=== PATIENT | male | born 1980 | race Two or more races ===

== ENCOUNTER 2024-03-20 11:06 | Emergency (ER) | payer MEDICAID, SELFPAY ==
[2024-03-20 11:07] VITALS: BMI 27.2
[2024-03-20 11:19] VITALS: BP 148/97; PULSE 82; RESP 16; TEMP 36.9; O2SAT 98; BMI 26.8
--- NOTE | 2024-03-20 12:20 | EDNOTE_ITS ---
ED Ear RME/HPI General Chief complaint: Ear Stated complaint: INCREASED BISHOP PAIUTE R EAR X1 MONTH Time Seen by Provider: 03/20/24 11:24 Source: patient Arrival date/time: 03/20/24 11:06 Is a 43-year-old male who presents to the emergency department with complaints of right ear pain and hard of hearing for 1 month. He was evaluated and treated by his PCP approximately 4 weeks ago with otic drops. Patient states he had mild improvement however his hearing muffled and pain has returned. Related Data Previous Rx's ?Medication ?Instructions ?Recorded amoxicillin 875 mg-potassium 1 tab PO BID #14 tabs 03/20/24 clavulanate 125 mg tablet clotrimazole 1 % topical solution 1 applic topical BID #10 mL 03/20/24 Allergies Allergy/AdvReac Type Severity Reaction Status Date / Time No Known Allergies Allergy Verified 03/20/24 11:10 Review of Systems Review of Systems Systems Reviewed: All systems reviewed, normal except as documented Narrative Review of Systems: Gen: No fever, no chills, no weight loss EYES: No discharge, no visual changes, no pain HEENT: +rt ear pain, no congestion, no sore throat PULM: No shortness of breath, no cough, no congestion CV: No chest pain, no dyspnea on exertion, no palpitations GI: No nausea, no vomiting, no diarrhea, no pain, no constipation : No frequency, no urgency,? no dysuria Musc/skel: No joint pain, no back pain Skin: No rash? Psyc: No hallucinations, no depression Heme/Lymph: No easy bleeding or bruising tendencies Neuro: No weakness, no headache ED Exam Narrative Physical exam: General: Sittiing in Exam table in no acute distress, answering questions appropriately HENT: normocephalic, atraumatic, EOMI, PERRLA, moist mucous membranes. RT TM is bulging and serous fluid buildup Chest: chest wall is nontender Cardiac: regular rate and rhythm, normal S1 and S2, no murmurs, rubs, or gallops, capillary refill ?2 seconds Pulmonary: clear to auscultation bilaterally, no wheezing, crackles, or rhonchi Abdominal: active bowel sounds, soft, nontender, nondistended Neuro: A&OX3, CN II-XII intact, sensation grossly intact bilaterally in UE and LE. Skin: no rashes, no ecchymosis Ext: no lower extremity edema Course Quality Measures none Vital Signs Vital signs: Vital Signs Temperature 98.4 F 03/20/24 11:19 Pulse Rate 82 03/20/24 11:19 Respiratory Rate 16 03/20/24 11:19 Blood Pressure 148/97 H 03/20/24 11:19 Pulse Oximetry (%) 98 03/20/24 11:19 Oxygen Delivery Method Room Air 03/20/24 11:19 Ear MDM Narrative MDM Narrative:: 43-year-old male evaluated for ongoing right ear pain. Most likely continued infection. Advised to start oral antibiotics. Failed ofloxacin. Will treat with otic clotrimazole for possible fungal infection right ear. Please follow-up with your primary doctor on Saturday Return to the emergency department is any worsening symptoms change in condition. Patient data External records reviewed:: [facility] previous records Clinical information provided by:: patient Social determinants that could affect healthcare access:: none Patient has the following chronic illnesses:: none How is presenting disease/condition affected by chronic disease/condition?: no chronic disease Evaluation data The following diagnostics were reviewed and interpreted by me:: other (specify) Lab and/or radiology exams considered but not ordered:: none Interpretation Summary: none Medications / Prescriptions Medications or Prescriptions considered but not ordered:: none Medication administrations:: none Consultations Consultation(s) initiated? (list below): No Diagnosis Ear Differential Diagnosis: otitis externa Most likely diagnosis given after review of the tests above:: Otitis externa, fungal Admission Indicated Admission indicated?: not indicated Explain why admission is indicated or not indicated:: none Admission Request Was there a request for admission?: No Disposition Plan Disposition Plan: Discharge Discharge Attestation Discharge Attestation: The patient and all family members were given an opportunity to ask questions and understood the discharge instructions. Discharge instructions specifically effects, indications for sooner follow up or return to the emergency department, and the expected course of current diagnosis. Patient condition: Stable Discharge Plan Plan Patient Disposition: HOME (Self Care) Patient condition on transfer: Stable Prescriptions/Referrals Prescriptions/Med Rec: New amoxicillin-pot clavulanate 875-125 mg tablet 1 tab PO BID Qty: 14 0RF clotrimazole 1 % solution 1 applic topical BID Qty: 10 0RF Rx Instructions: 1 gtt to right ear BID for 14 days. Problem List Clinical Impression: Otitis externa, fungal, Otitis externa Patient/Caregiver Discharge Instructions Discharge Activity: activity as tolerated Education Materials: ED Fungal Skin Infection (Tinea), ED External Ear Infection (Adult) Additional Instructions: Please take course of oral antibiotics. Failed ofloxacin. Will treat with otic clotrimazole for possible fungal infection right ear. Please follow-up with your primary doctor on Saturday Return to the emergency department is any worsening symptoms change in condition . Print Language: Lithuanian Stand Alone Forms: Hien Award Info., Patient Portal Info Letter PA/METER SHOP SUPERVISOR Supervising Physician PA/METER [employer] SUPERVISOR Supervising Physician: Dr Tabor
== END 2024-03-20 12:37 | disposition home or self-care (01) ==
PROVIDERS: Emergency Provider Emergency Medicine
DX: H60.91 Unspecified otitis externa, right ear (principal)
CPT/HCPCS: 99281

== ENCOUNTER 2024-05-06 10:11 | Emergency (ER) | payer MEDICAID, SELFPAY ==
[2024-05-06 10:33] VITALS: BP 138/86; PULSE 61; RESP 16; TEMP 36.8; O2SAT 98; BMI 26.2
--- NOTE | 2024-05-06 12:27 | EDNOTE_ITS ---
<Statement entered by Harper Dillon MD - 05/07/24 07:27> As co-signing physician, I was present and available for consult prn. I concur with the plan and care as documented by the midlevel provider. ED Ear RME/HPI General Chief complaint: Ear Stated complaint: CAN'T HEAR FROM RIGHT EAR Time Seen by Provider: 05/06/24 11:45 Source: patient Arrival date/time: 05/06/24 10:11 43-year-old male with no known medical history presents to the emergency room with a chief complaint of pain and tenderness to his right ear as well as difficulty hearing. Mode of arrival: ambulatory Limitations: no limitations Related Data Previous Rx's ?Medication ?Instructions ?Recorded amoxicillin 875 mg-potassium 1 tab PO BID #14 tabs clavulanate 125 mg tablet clotrimazole 1 % topical solution 1 applic topical BID #10 mL 03/20/24 amoxicillin 875 mg-potassium 1 tab PO BID 7 days #14 t abs 05/06/24 clavulanate 125 mg tablet ciprofloxacin HCl 500 mg tablet 500 mg PO BID 7 days # 14 tabs 05/06/24 Allergies Allergy/AdvReac Type Severity Reaction Status Date / Time No Known Allergies Allergy Verified 05/06/24 10:12 Review of Systems Review of Systems Systems Reviewed: All systems reviewed, normal except as documented Constitutional Constitutional: Reports system reviewed and no additional complaints, except as documented, Denies fatigue, Denies fever(s), Denies headache(s) and Denies weakness Eyes Eyes: Reports system reviewed and no additional complaints, except as documented, Denies blurry vision and Denies change in vision ENT Ears, Nose, Mouth, and Throat: Reports system reviewed and no additional complaints, except as documented, Reports ear discharge, Reports otalgia, Denies headache(s), Denies nasal congestion, Denies throat swelling and Denies vertigo Cardiovascular Cardiovascular: Reports system reviewed and no additional complaints, except as documented, Denies chest pain, Denies dyspnea and Denies dyspnea on exertion Respiratory Respiratory: Reports system reviewed and no additional complaints, except as documented, Denies chest congestion, Denies cough, Denies dyspnea, Denies dyspnea on exertion and Denies wheezing Gastrointestinal Gastrointestinal: Reports system reviewed and no additional complaints, except as documented, Denies abdominal pain, Denies cramping, Denies nausea and Denies vomiting Genitourinary Genitourinary: Reports system reviewed and no additional complaints, except as documented, Denies dysuria and Denies hematuria Musculoskeletal Musculoskeletal: Reports system reviewed and no additional complaints, except as documented and Denies back pain Integumentary/Breasts Skin/Breast: Reports system reviewed and no additional complaints, except as documented and Denies wounds Neurologic Neurologic: Reports system reviewed and no additional complaints, except as documented, Denies confusion, Denies headache(s), Denies lack of coordination, Denies vertigo and Denies weakness Psychiatric Psychiatric: Reports system reviewed and no additional complaints, except as documented, Denies anxiety, Denies confusion, Denies depression, Denies paranoia, Denies suicidal ideation and Denies tactile hallucinations Endocrine Endocrine: Reports system reviewed and no additional complaints, except as documented and Denies fatigue Hematologic/Lymphatic Hematologic/Lymphatic: Reports system reviewed and no additional complaints, except as documented and Denies lymphadenopathy Allergic/Immunologic Allergic/Immunologic: Reports system reviewed and no additional complaints, except as documented, Denies throat swelling, Denies urticaria and Denies wheezing Past Medical History Social History SMOKING STATUS: Never smoker ED Exam General Limitations: Present no limitations General appearance: Present alert and in no apparent distress Head Head exam: Present atraumatic Eye Eye exam: Present normal appearance, PERRL and EOMI ENT ENT exam: Present normal exam, normal oropharynx and mucous membranes moist; Absent TM's normal bilaterally or normal external ear exam Expanded ENT Exam External ear exam: Present pain with movement and external tenderness TM/Canal exam: Right TM: erythema, perforation, canal discharge and canal tenderness Neck Neck exam: Present normal inspection, full ROM and trachea midline Chest Chest inspection: Present normal inspection and symmetric chest wall rise Respiratory Respiratory exam: Present normal lung sounds bilaterally Cardiovascular Cardiovascular exam: Present regular rate, normal rhythm and normal heart sounds Abdominal Exam Abdominal exam: Present soft and normal bowel sounds Extremities Exam Extremities exam: Present normal inspection and full ROM Back Exam Back exam: Present normal inspection and full ROM Neurological Exam Neurological exam: Present alert, oriented X3 and CN II-XII intact Psychiatric Psychiatric exam: Present normal affect and normal mood Skin Skin exam: Present warm, dry, intact and normal color Course Quality Measures none Orders Category Date Time Status ED Ear Irrigation X1 Care 05/06/24 10:50 Completed cefTRIAXone [Rocephin] 1,000 mg Med 05/06/24 12:21 Discontinued Lidocaine 1% 20 ml [Xylocaine 1% 20 ML] 2.1 ml IM X1 Vital Signs Vital signs: Vital Signs Temperature 98.2 F 05/06/24 10:33 Pulse Rate 61 05/06/24 10:33 Respiratory Rate 16 05/06/24 10:33 Blood Pressure 138/86 H 05/06/24 10:33 Pulse Oximetry (%) 98 05/06/24 10:33 Oxygen Delivery Method Room Air 05/06/24 10:33 O2 saturation 98% within normal limits Ear MDM Narrative MDM Narrative:: 43-year-old male with no known medical history presents to the emergency room with a chief complaint of pain and tenderness to his right ear as well as difficulty hearing. Patient is hemodynamically stable and in no apparent distress. Physical examination shows an erythemic perforated right-sided tympanic membrane. There is external ear canal discharge and tenderness. Antibiotics were sent to the patient's pharmacy. Patient was educated that he needs to follow-up with his primary care provider as a referral to ENT is warranted. Antibiotics are sent to the patient's pharmacy patient was discharged and educated to follow-up with primary care provider and return to the emergency room for any evidence of worsening signs or symptoms Patient data External records reviewed:: [facility] previous records Clinical information provided by:: patient Social determinants that could affect healthcare access:: none Patient has the following chronic illnesses:: No chronic illness How is presenting disease/condition affected by chronic disease/condition?: no chronic disease Evaluation data The following diagnostics were reviewed and interpreted by me:: lab results and radiology exam(s) Lab and/or radiology exams considered but not ordered:: Labs and radiology exams considered and ordered Interpretation Summary: N/A Medications / Prescriptions Medications or Prescriptions considered but not ordered:: Rx given Medication administrations:: Medication Administration History Discontinued Medications Ceftriaxone Sodium 1,000 mg/ (Lidocaine HCl 2.1 ml) 0 mg IM X1 ONE Stop: 05/06/24 12:22 Last Admin: 05/06/24 12:57 Dose: 1,000 mg Documented By: Rx given Consultations Consultation(s) initiated? (list below): No Diagnosis Ear Differential Diagnosis: otitis externa, otitis media, ruptured TM and cerumen impaction Most likely diagnosis given after review of the tests above:: Ruptured TM Admission Indicated Admission indicated?: not indicated Admission Request Was there a request for admission?: No Disposition Plan Disposition Plan: Discharge Discharge Attestation Discharge Attestation: The patient and all family members were given an opportunity to ask questions and understood the discharge instructions. Discharge instructions specifically effects, indications for sooner follow up or return to the emergency department, and the expected course of current diagnosis. Patient condition: Stable Discharge Plan Plan Patient Disposition: HOME (Self Care) Disposition Comment: Stable Prescriptions/Referrals Prescriptions/Med Rec: New ciprofloxacin HCl 500 mg tablet 500 mg PO BID 7 Days Qty: 14 0RF amoxicillin-pot clavulanate 875-125 mg tablet 1 tab PO BID 7 Days Qty: 14 0RF No Action amoxicillin-pot clavulanate 875-125 mg tablet 1 tab PO BID Qty: 14 0RF clotrimazole 1 % solution 1 applic topical BID Qty: 10 0RF Rx Instructions: 1 gtt to right ear BID for 14 days. Referrals: Loida Phelan PA-C [Primary Care Provider] - In 1 week Problem List Clinical Impression: Otitis media, Acute otitis media of right ear with perforated tympanic membrane Patient/Caregiver Discharge Instructions Education Materials: ED PERFORATED TM Infected [Adult] Additional Instructions: Por favor, consulte con gamboa m?dico de cabecera en las pr?ximas 24 a 48 horas. Causey tenido renaldo infecci?n continua en el o?do derecho desde diciembre. Tiene p?rdida auditiva. Gamboa membrana timp?roz est? perforada. Se enviaron antibi?ticos a gamboa farmacia, rec?jalos y t?melos seg?n lo indicado. Por favor, consulte con gamboa m?dico de cabecera para que lo derive a un otorrinolaring?logo. Se eliminaron cuidadosamente los residuos del canal auditivo. Si hay alguna evidencia de empeoramiento de los signos o s?ntomas, regrese a la apryl de emergencias de inmediato. Print Language: Nepali Stand Alone Forms: Hien Award Info., Patient Portal Info Letter PA/ALEJA Supervising Physician PA/ALEJA Supervising Physician: Dr. DILLON
[2024-05-06] MEDS: cefTRIAXone 1,000 MG, LIDOCAINE 1% 20 ML 2.1 ML IM (12:57)
== END 2024-05-06 13:17 | disposition home or self-care (01) ==
PROVIDERS: Emergency Provider Emergency Medicine; PCP Physician Assistant
DX: H66.91 Otitis media, unspecified, right ear (principal); H72.91 Unspecified perforation of tympanic membrane, right ear
CPT/HCPCS: 96372; 99283; J0696; J3490